=== PATIENT | male | born 1995 | race Caucasian/White ===

== ENCOUNTER 2017-01-24 14:03 | Emergency (ER) | payer SELFPAY ==
[~2017-01-24] VITALS: Ht 170.2 cm; Wt 79.5 kg
[2017-01-24] MEDS ORDERED: LIDOCAINE HCL 1% 10 ML VIAL INJ ONE (15:30)
[2017-01-24] MEDS ORDERED: HYDROCODONE/ACETAMINOPHEN 5-325 MG TABLET PO ONE (15:30)
[2017-01-24] MEDS ORDERED: PERTUSS(ACELL),DIPH,TET VAC/PF 0.5 ML VIAL IM ONE (15:30)
[2017-01-24] MEDS ORDERED: BACITRACIN 0.9 GM PACKET OINTMENT TP ONE (15:45)
[2017-01-24 16:14] VITALS: BP 143/72
== END 2017-01-24 16:31 | disposition home or self-care (01) ==
LOC: EMS 14:06
DX: S62.631B Displaced fracture of distal phalanx of left index finger, initial encounter for open fracture (principal); W27.8XXA Contact with other nonpowered hand tool, initial encounter; Y93.89 Activity, other specified; Y92.89 Other specified places as the place of occurrence of the external cause; Y99.8 Other external cause status
CPT/HCPCS: 12001; 73140; 90471; 90715; 99284; J3490